=== PATIENT | female | born 1945 | race African-American/Black ===

== ENCOUNTER → 2016-12-06 | Day surgery (SDC) | payer MEDICARE, OTHER | LOC: RAD 11:44 | PROVIDERS: ATTEND Otolaryngology | PROC: 0G9G3ZX Drainage of Left Thyroid Gland Lobe, Percutaneous Approach, Diagnostic (ICD-10-PCS; principal; 2016-12-06) | DX: R22.1 Localized swelling, mass and lump, neck (principal); E04.1 Nontoxic single thyroid nodule; E89.0 Postprocedural hypothyroidism; Z85.850 Personal history of malignant neoplasm of thyroid; I10 Essential (primary) hypertension; M06.9 Rheumatoid arthritis, unspecified; E11.9 Type 2 diabetes mellitus without complications; E07.9 Disorder of thyroid, unspecified; Z87.891 Personal history of nicotine dependence | CPT/HCPCS: 60100; 76942; 88173 ==

== ENCOUNTER 2017-05-05 16:10 | Emergency (ER) | payer MEDICARE, OTHER ==
--- NOTE | 2017-05-05 16:24 | ER Document Report ---
ED Hip Pain/Injury - General Stated Complaint: LEFT HIP PAIN Time Seen by Provider: 05/05/17 16:16 Mode of Arrival: Stretcher Information source: Emergency Med Personnel Cannot obtain history due to: Dementia TRAVEL OUTSIDE OF THE [place] IN LAST 30 DAYS: No - HPI Patient complains to provider of: Hip Occurred: Just prior to arrival Where: Home Notes: 71-year-old female fell at home. She reports she tripped over her foot and now has left hip pain. She denies other injury. She does have apparently some dementia so history is limited her EMS and report. Blood sugar was noted to be 358. She denies any other medical problems but is on a few medications but none appear to be anticoagulants. Denies chest pain abdominal pain. - Related Data Allergies/Adverse Reactions: Sulfa (Sulfonamide Antibiotics) Allergy (Severe, Verified 05/05/17 22:06) Swelling of Throat Past Medical History - Social History Smoking Status: Unknown if Ever Smoked Family History: Reviewed & Not Pertinent - Past Medical History Cardiac Medical History: Reports: Hx Hypertension Neurological Medical History: Denies: Hx Cerebrovascular Accident, Hx Seizures Endocrine Medical History: Reports: Hx Diabetes Mellitus Type 2 Musculoskeltal Medical History: Reports Hx Arthritis Past Surgical History: Reports: Hx Hysterectomy, Hx Mastectomy. Denies: Hx Open Heart Surgery, Hx Pacemaker - Immunizations Immunizations up to date: Yes Hx Diphtheria, Pertussis, Tetanus Vaccination: No Hx Pneumococcal Vaccination: 08/16/10 Physical Exam - Vital signs Vitals: Temp Pulse Resp BP Pulse Ox 98.5 F 81 18 178/105 H 100 05/05/17 16:31 05/05/17 16:31 05/05/17 16:31 05/05/17 16:31 05/05/17 16:31 Interpretation: Hypertensive - Notes Notes: GENERAL: VS as per nursing doc. Thin female appearing comfortable in no acute distress but obviously has pain with movement. HEAD: Atraumatic, normocephalic. EYES: Pupils equal round and reactive to light, extraocular movements intact, sclera anicteric, no conjunctival injection or discharge. ENT: Nares patent, oropharynx clear without exudates, moist mucous membranes. NECK: Normal range of motion, supple without lymphadenopathy. LUNGS: Breath sounds clear to auscultation bilaterally and equal but coarse to auscultation. No wheezes rales or rhonchi. HEART: Regular rate and rhythm without murmurs. ABDOMEN: Soft, non-tender BACK: No palpable tenderness. EXTREMITIES: Muscular atrophy noted. There is very minimal external rotation of the left hip but that is also very minimal shortening. There is an abrasion over the left prepatellar area. Left hip is tender. Pelvis is stable but elicits left hip pain. Neurovascularly intact distally. NEUROLOGICAL: Normal speech. Normal sensory and motor exams for limits of pain with the left lower extremity PSYCH: Somewhat flat affect. Oriented 1 only SKIN: Warm, dry, left prepatellar abrasion Course - Re-evaluation Re-evalutation: 05/05/17 19:33 Patient reevaluated. Apparently daughter was here but is gone at this moment. I have placed a call to the hospitalist regarding admission, though we have no orthopedics apparently temperature control inspector.. 05/05/17 20:41 I went to the room and the family was not there but there was a friend who is trying to contact the daughter to obtain more information including where they would like to be transferred. Patient appears comfortable. Blood pressure seems to remain in the 170s-180s unless she is moving. Blood sugar was elevated. It appears she may have not not much treatment of these and a while as pharmacy reports they have not had any medications picked up recently. 05/05/17 21:17 I discussed at length with the patient's daughter. She is actually from [place] was coming up here to basically take her mother back home with her, unfortunately this fall occurred. She requests transfer to [facility] after giving multiple options. Reason for level higher of care as we do not have an orthopedist available/on-call this entire weekend. I spoke with the transfer center and they are going to contact a physician to call me back. 05/05/17 21:[address] Velazquez from [facility] who graciously will take the patient in transfer for hip repair. I have instructed the family and staff both that she should be n.p.o. after midnight and as well have asked to ensure x-rays on disc are sent. I have also asked xray to push the x-rays to [facility]. 05/05/17 23:10 The patient was reevaluated in the last 30 minutes. No further changes. The household refrigerator mechanic at the accepting facility has requested blood pressure treatment as they have no medical physician apparently she reports to care of this if it is an issue there. We will place her on lisinopril 10 mg. It appears apparent she has not had her blood pressure treated in a lengthy period of time as evidenced by the fact that she has not had medications. - Vital Signs Vital signs: Temp Pulse Resp BP Pulse Ox 98.9 F 81 17 173/98 H 100 05/05/17 23:03 05/05/17 16:31 05/05/17 23:04 05/05/17 23:04 05/05/17 23:04 - Laboratory Result Diagrams: 05/05/17 17:02 05/05/17 19:00 Laboratory results interpreted by me: 05/05/17 05/05/17 05/05/17 17:02 18:38 19:00 Hgb 15.8 H RDW 14.5 H Plt Count 105 L Sodium 136.5 L Carbon Dioxide 20 L BUN 33 H Creatinine 1.75 H Est GFR ( Amer) 35 L Est GFR (Non-Af Amer) 29 L Glucose 339 H POC Glucose Calcium 10.5 H Total Bilirubin 1.9 H Direct Bilirubin 0.6 H Total Protein 8.5 H Urine Protein 30 H Urine Glucose (UA) >=500 H Urine Ketones TRACE H Urine Blood MODERATE H 05/05/17 20:36 Hgb RDW Plt Count Sodium Carbon Dioxide BUN Creatinine Est GFR ( Amer) Est GFR (Non-Af Amer) Glucose POC Glucose 323 H Calcium Total Bilirubin Direct Bilirubin Total Protein Urine Protein Urine Glucose (UA) Urine Ketones Urine Blood - Diagnostic Test Radiology reviewed: Image reviewed, Reports reviewed - Left Femoral neck fracture - Consults Dr. Shi #1 Time consulted: 19:35 - Call placed to Dr. Shi. Will attempt again as no answer though it is their shift change. Dr. Shi #2 Time consulted: 20:15 - Discussed with Dr. Shi and as no Ortho here all weekend, wants transfer to higher level of care. Fran Bella Time consulted: 20:24 - Discuss with Admin and rec transfer as no Ortho temperature control inspector this weekend. Discharge - Discharge Clinical Impression: Displaced fracture of neck of left femur Condition: Good Disposition: [facility]
[2017-05-05] MEDS ORDERED: FENTANYL CITRATE INJ/PF 100 MCG/2 ML AMPUL IV ONE (16:46)
[2017-05-05 17:19] LABS: ABSOLUTE BASOPHILS # (AUTO) 0.1 10^3/uL (0.0-0.2); ABSOLUTE LYMPHOCYTES (AUTO) 2.3 10^3/uL (0.5-4.7); ABSOLUTE MONOCYTES (AUTO) 0.3 10^3/uL (0.1-1.4); ABSOLUTE NEUT (AUTO) 7.2 10^3/uL (1.7-8.2); BASOPHILS % (AUTO) 0.6 % (0-2); EOSINOPHILS % (AUTO) 0.2 % (0-6); HEMATOCRIT 46.3 % (36.0-47.0); HEMOGLOBIN 15.8 g/dL (12.0-15.5); HGB HCT DIFFERENCE 1.1; LYMPHOCYTES % (AUTO) 23.2 % (13-45); MEAN CORPUSCULAR HEMOGLOBIN 31.2 pg (27.0-33.4); MEAN CORPUSCULAR HGB CONC 34.2 g/dL (32.0-36.0); MEAN CORPUSCULAR VOLUME 91 fl (80-97); MONOCYTES % (AUTO) 3.4 % (3-13); RED BLOOD COUNT 5.07 10^6/uL (3.72-5.28); RED CELL DISTRIBUTION WIDTH 14.5 % (11.5-14.0); SEGMENTED NEUTROPHILS % (AUTO) 72.6 % (42-78); WHITE BLOOD COUNT 9.8 10^3/uL (4.0-10.5)
[2017-05-05 17:30] LABS: PROTHROMBIN TIME 13.2 SEC (11.4-15.4)
--- NOTE | 2017-05-05 18:12 | RADIOLOGY REPORT (SQ) ---
EXAM DESCRIPTION: CHEST SINGLE VIEW COMPLETED DATE/TIME: 05/05/2017 5:46 pm REASON FOR STUDY: Trauma with pain COMPARISON: 05/15/2015 EXAM PARAMETERS: NUMBER OF VIEWS: One view. TECHNIQUE: Single frontal radiographic view of the chest acquired. RADIATION DOSE: NA LIMITATIONS: None. FINDINGS: LUNGS AND PLEURA: No opacities, masses or pneumothorax. No pleural effusion. MEDIASTINUM AND HILAR STRUCTURES: No masses. Contour normal. HEART AND VASCULAR STRUCTURES: Heart normal in size. Normal vasculature. BONES: No acute findings. HARDWARE: Stable. OTHER: No other significant finding. IMPRESSION: NO ACUTE RADIOGRAPHIC FINDING IN THE CHEST. NO SIGNIFICANT CHANGE FROM PRIOR STUDY. TECHNICAL DOCUMENTATION: JOB ID: [id number]
--- NOTE | 2017-05-05 18:13 | RADIOLOGY REPORT (SQ) ---
EXAM DESCRIPTION: HIP LEFT AP/LATERAL COMPLETED DATE/TIME: 05/05/2017 5:46 pm REASON FOR STUDY: Trauma with pain COMPARISON: 01/19/2016 NUMBER OF VIEWS: Two views. TECHNIQUE: AP pelvis and additional frog-leg view of the left hip. LIMITATIONS: None. FINDINGS: MINERALIZATION: Normal. LEFT HIP: Moderately displaced subcapital femoral neck fracture. RIGHT HIP: No fracture or dislocation. No worrisome bone lesions. PUBIS AND ISCHIUM: No fracture. PELVIS: No fracture. SACRUM: No fracture or dislocation. No worrisome bone lesions. LOWER LUMBAR SPINE: No fracture or dislocation. No worrisome bone lesions. No significant disc disea se. SOFT TISSUES: No findings. OTHER: No other significant finding. IMPRESSION: LEFT FEMORAL NECK FRACTURE ABOVE. TECHNICAL DOCUMENTATION: JOB ID: [id number] [employer]- All Rights Reserved
[2017-05-05 19:29] LABS: APPEARANCE,URINE CLEAR; BILIRUBIN,URINE NEGATIVE (NEGATIVE); GLUCOSE, URINE >=500 mg/dL (NEGATIVE); KETONES,URINE TRACE mg/dL (NEGATIVE); LEUKOCYTE ESTERASE,URINE NEGATIVE (NEGATIVE); NITRITE,URINE NEGATIVE (NEGATIVE); PROTEIN,URINE 30 mg/dL (NEGATIVE); URINE SPECIFIC GRAVITY 1.017; UROBILINOGEN,URINE NEGATIVE mg/dL (<2.0)
[2017-05-05 20:04] LABS: ALANINE AMINOTRANSFERASE 24 U/L (9-52); ALBUMIN 4.9 g/dL (3.5-5.0); ALKALINE PHOSPHATASE 103 U/L (38-126); ANION GAP 19 (5-19); ASPARTATE AMINO TRANSFERASE 28 U/L (14-36); BILIRUBIN,DIRECT 0.6 mg/dL (0.0-0.4); BILIRUBIN,TOTAL 1.9 mg/dL (0.2-1.3); BLOOD UREA NITROGEN 33 mg/dL (7-20); CALCIUM 10.5 mg/dL (8.4-10.2); CARBON DIOXIDE 20 mmol/L (22-30); CHLORIDE 98 mmol/L (98-107); CREATININE RESULT 1.75 mg/dL (0.52-1.25); GLUCOSE 339 mg/dL (75-110); POTASSIUM 4.5 mmol/L (3.6-5.0); SODIUM 136.5 mmol/L (137-145); TOTAL PROTEIN 8.5 g/dL (6.3-8.2)
[2017-05-05 23:06] VITALS: BP 173/98
[2017-05-05] MEDS ORDERED: LISINOPRIL 10 MG TABLET PO ONE (23:09)
--- NOTE | 2017-05-07 13:05 | EKG REPORT ---
SEVERITY:- ABNORMAL ECG - SINUS RHYTHM BORDERLINE LEFT AXIS DEVIATION PROBABLE ANTEROSEPTAL INFARCT, AGE INDETERM : Confirmed by: Emily Maldonado MD 07-May-2017 13:04:51
== END 2017-05-05 23:20 | disposition short-term general hospital (02) ==
LOC: ER 16:10
DX: S72.002A Fracture of unspecified part of neck of left femur, initial encounter for closed fracture (principal); S80.812A Abrasion, left lower leg, initial encounter; W19.XXXA Unspecified fall, initial encounter; Y92.009 Unspecified place in unspecified non-institutional (private) residence as the place of occurrence of the external cause; E11.9 Type 2 diabetes mellitus without complications; F03.90 Unspecified dementia, unspecified severity, without behavioral disturbance, psychotic disturbance, mood disturbance, and anxiety; I10 Essential (primary) hypertension; Z88.2 Allergy status to sulfonamides; Z90.710 Acquired absence of both cervix and uterus
CPT/HCPCS: 93005; 99285; 51702; 96374; 86900; 86901; 36415; 86850; 82962; 85025; 85610; 80053; 81001; 71010; 73502; 93010; J3010; A9270

== ENCOUNTER 2017-05-16 00:49 | Inpatient (IN) | payer MEDICARE, OTHER ==
[2017-05-16] MEDS ORDERED: ACETAMINOPHEN 325 MG TABLET PO ONE (01:10)
--- NOTE | 2017-05-16 01:21 | ER Document Report ---
ED General - General Chief Complaint: Hip Injury Stated Complaint: FALL/HIP PAIN Time Seen by Provider: 05/16/17 01:07 Notes: Patient is a 71-year-old female presents with complaint of a possible right femur fracture. She stays at [facility]. Just last week she was transferred to [facility] due to a left hip fracture. I am awaiting records from [facility] to see exactly what they did for the patient at that time. She was then discharged to [facility]. She apparently was walking this morning and fell and they obtain a x-ray which now shows a right femur fracture. Patient has dementia and is unable to tell me much more in regards to her history. She does admit to falling but cannot remember when. She only complains of some pain in her left hip. She denies headache. She denies neck or back pain. TRAVEL OUTSIDE OF THE [place] IN LAST 30 DAYS: No - Related Data Allergies/Adverse Reactions: Sulfa (Sulfonamide Antibiotics) Allergy (Severe, Verified 05/05/17 22:06) Swelling of Throat Past Medical History - Social History Smoking Status: Unknown if Ever Smoked Frequency of alcohol use: None Drug Abuse: None Family History: Reviewed & Not Pertinent - Past Medical History Cardiac Medical History: Reports: Hx Hypertension Neurological Medical History: Denies: Hx Cerebrovascular Accident, Hx Seizures Endocrine Medical History: Reports: Hx Diabetes Mellitus Type 2 Renal/ Medical History: Reports: Hx End Stage Renal Disease - CKD Musculoskeltal Medical History: Reports Hx Arthritis Past Surgical History: Reports: Hx Hysterectomy, Hx Mastectomy. Denies: Hx Open Heart Surgery, Hx Pacemaker - Immunizations Immunizations up to date: Yes Hx Diphtheria, Pertussis, Tetanus Vaccination: No Hx Pneumococcal Vaccination: 08/16/10 Review of Systems - Review of Systems Notes: My Normal Review Basic REVIEW OF SYSTEMS: CONSTITUTIONAL : Denies fever, chills, or sweats. Denies recent illness. MUSCULOSKELETAL: Left hip pain. Possible right femur fracture per report from retirement. SKIN: Denies rash or skin lesions. NEUROLOGICAL: Denies altered mental status or loss of consciousness. Denies headache. Denies weakness or paralysis or loss of use of either side. Denies problems with gait or speech. Denies sensory or motor loss. ALL OTHER SYSTEMS REVIEWED AND NEGATIVE. Physical Exam - Notes Notes: General Appearance: Well nourished, alert, cooperative, no acute distress, no obvious discomfort. Vitals: reviewed, See vital signs table. Head: no swelling or tenderness to the head Eyes: PERRL, EOMI, Conjuctiva clear Mouth: No decreasd moisturehroat: No tonsillar inflammation, No airway obstruction, No lymphadenopathy Neck: Supple, no neck tenderness, Lungs: No wheezing, No rales, No rhonci, No accessory muscle use, good air exchange bilaterally. Heart: Normal rate, Regular rythm, No murmur, no rub Abdomen: Normal BS, soft, No rigidity, No abdominal tenderness, No guarding, no rebound, no abdominal masses, no organomegaly Extremities: strength 5/5 in all extremities, good pulses in all extremities, pain to palpation over left hip. No pain to palpation of her right leg. No pain with flexion or extension of the right hip. No pain to palpation of the upper extremities. No pain with range of motion of upper extremities. Skin: warm, dry, appropriate color, no rash Neuro: speech clear, oriented x 2, normal affect, responds appropriately to most questions. Course - Re-evaluation Re-evalutation: 05/16/17 05:04 Patient unfortunately does have a right subcapital hip fracture. I did speak with the family and they are agreeable to admission with Ortho consult. Place do want to speak with the orthopedist prior to any surgery being done. If the fracture is stable enough that they may want to eventually arrange for transfer to hospital back to the daughter's home in [place] for potential surgery. He said if the surgery does need to be done here then they will talk to the orthopedist about doing it here and then potential transfer to [place] afterwards for rehab. They are agreement with going had admitting here and stabilizing the patient and having orthopedics review the films and speaking with them. 05/16/17 05:05 05/16/17 05:24 I did call and speak with Dr. Jasso. I went over the patient's labs including the slight hyperkalemia. Patient has no EKG changes in regards to hyperkalemia. Think this is probably partial hemolysis and partial renal insufficiency. He does agree to admit the patient with orthopedic consultation. I did call and speak with Dr. Carranza, orthopedist on-call, just to give him a heads up about the situation and the patient's concerns about eventually wanting to take her back to [place]. He is understanding of this and says he would see the patient in consultation and speak with the family. - Laboratory Result Diagrams: 05/16/17 01:10 05/16/17 01:10 Laboratory results interpreted by me: 05/16/17 01:10 Sodium 132.5 L Potassium 5.8 H Chloride 96 L BUN 35 H Creatinine 2.05 H Est GFR ( Amer) 29 L Est GFR (Non-Af Amer) 24 L Glucose 127 H Direct Bilirubin 0.6 H AST 39 H Total Protein 5.7 L Albumin 2.8 L - EKG Interpretation by Me Additional EKG results interpreted by me: 05/16/17 04:57 EKG is reviewed and interpreted by me. EKG shows normal sinus rhythm with rate of [address] segment elevation or depression in comparison to her old EKG from May 05, 2017. SC interval, QRS duration, QTc intervals are within normal range. Discharge - Discharge Clinical Impression: Hyperkalemia, Renal insufficiency Hip fracture Qualifiers: Encounter type: initial encounter Fracture type: closed Laterality: right Qualified Code(s): S72.001A - Fracture of unspecified part of neck of right femur, initial encounter for closed fracture Condition: Stable Disposition: ADMITTED INPATIENT Admitting Provider: Romero
--- NOTE | 2017-05-16 02:26 | RADIOLOGY REPORT (SQ) ---
EXAM DESCRIPTION: HIP LEFT AP/LATERAL; FEMUR RIGHT COMPLETED DATE/TIME: 05/16/2017 1:51 am REASON FOR STUDY: trauma COMPARISON: 05/05/2017. NUMBER OF VIEWS: 6 views. TECHNIQUE: AP pelvis and additional frog-leg view of the left hip. Four views of the right femur. LIMITATIONS: No frog-leg view of the right hip. FINDINGS: MINERALIZATION: Normal. LEFT HIP: Left total hip arthroplasty. RIGHT HIP: Subtle impaction deformity or positional artifact of the right femoral neck. No evidence of healing. No frog-leg view of the right hip. PUBIS AND ISCHIUM: No fracture. PELVIS: No fracture. SACRUM: No fracture or dislocation. No worrisome bone lesions. LOWER LUMBAR SPINE: No fracture or dislocation. No worrisome bone lesions. No significant disc disea se. SOFT TISSUES: No findings. OTHER: No other significant finding. IMPRESSION: Possible mildly impacted right femoral neck fracture/deformity. Consider obtaining dedi cated radiographs of the right hip and/or CT/MR correlation TECHNICAL DOCUMENTATION: JOB ID: [id number] [employer]- All Rights Reserved
--- NOTE | 2017-05-16 04:19 | RADIOLOGY REPORT (SQ) ---
EXAM DESCRIPTION: CT RT LOWER EXTREMITY WITHOUT COMPLETED DATE/TIME: 05/16/2017 3:49 am REASON FOR STUDY: eval for right hip/femur fracture. pt fell. COMPARISON: CR, right femur and left hip, 05/16/2017. CR, left hip, 05/05/2017. TECHNIQUE: CT scan of the right hip and femur performed without intravenous or oral contrast. Image s reviewed with soft tissue and bone windows. Reconstructed coronal and sagittal MPR images reviewed . All images stored on PACS. All CT scanners at this facility use dose modulation, iterative reconstruction, and/or weight based d osing when appropriate to reduce radiation dose to as low as reasonably achievable (ALARA). [facility]: Dose Right [facility]: CareDose [facility]: Dose Right [facility]: Teradose 4D [facility]: PollitoIngles RADIATION DOSE: 442 LIMITATIONS: None. FINDINGS: PELVIC BONES: No acute fracture. No worrisome bone lesions. VISUALIZED SPINE: No acute findings. SYMPTOMATIC HIP/femur: Subtle subcapital fracture of the right proximal femur with 2 mm cortical disp lacement and slight valgus configuration, image 80 of series 502, Garden type 1. Prominent fovea cap itis variant. Mild osteoarthritis. PELVIC SOFT TISSUES: No significant findings. EXTRAPELVIC SOFT TISSUES: Atherosclerosis. OTHER: [id number] disc desiccation spondylosis. Right gluteal subcutaneous calcified granuloma . 2 cm right inguinal fat only herniation. Moderate diffuse bony demineralization. IMPRESSION: Subcapital fracture of the right proximal femur. TECHNICAL DOCUMENTATION: JOB ID: [id number] Quality ID # [id number]: Final reports with documentation of one or more dose reduction techniques (e.g., Au tomated exposure control, adjustment of the mA and/or kV according to patient size, use of iterative reconstruction technique) 2010 [employer]- All Rights Reserved
[2017-05-16 04:57] LABS: PROTHROMBIN TIME 13.1 SEC (11.4-15.4)
[2017-05-16 04:58] LABS: PARTIAL THROMBOPLASTIN TIME 33.4 SEC (23.5-35.8)
[2017-05-16 05:15] LABS: ALANINE AMINOTRANSFERASE 39 U/L (9-52); ALBUMIN 2.8 g/dL (3.5-5.0); ALKALINE PHOSPHATASE 80 U/L (38-126); ANION GAP 9 (5-19); ASPARTATE AMINO TRANSFERASE 39 U/L (14-36); BILIRUBIN,DIRECT 0.6 mg/dL (0.0-0.4); BILIRUBIN,TOTAL 0.7 mg/dL (0.2-1.3); BLOOD UREA NITROGEN 35 mg/dL (7-20); CALCIUM 8.7 mg/dL (8.4-10.2); CARBON DIOXIDE 28 mmol/L (22-30); CHLORIDE 96 mmol/L (98-107); CREATININE RESULT 2.05 mg/dL (0.52-1.25); GLUCOSE 127 mg/dL (75-110); POTASSIUM 5.8 mmol/L (3.6-5.0); SODIUM 132.5 mmol/L (137-145); TOTAL PROTEIN 5.7 g/dL (6.3-8.2)
[2017-05-16] MEDS ORDERED: NORMAL SALINE 1000 ML 1,000 ML IV ONE (05:18)
[2017-05-16 05:19] LABS: ABSOLUTE EOSINOPHILS # (AUTO) 0.1 10^3/uL (0.0-0.6); ABSOLUTE LYMPHOCYTES (AUTO) 4.1 10^3/uL (0.5-4.7); ABSOLUTE MONOCYTES (AUTO) 0.5 10^3/uL (0.1-1.4); ABSOLUTE NEUT (AUTO) 4.1 10^3/uL (1.7-8.2); BASOPHILS % (AUTO) 0.4 % (0-2); EOSINOPHILS % (AUTO) 1.3 % (0-6); HEMATOCRIT 31.9 % (36.0-47.0); HEMOGLOBIN 10.9 g/dL (12.0-15.5); HGB HCT DIFFERENCE 0.8; MEAN CORPUSCULAR HEMOGLOBIN 31.3 pg (27.0-33.4); MEAN CORPUSCULAR HGB CONC 34.2 g/dL (32.0-36.0); MEAN CORPUSCULAR VOLUME 92 fl (80-97); MONOCYTES % (AUTO) 6.1 % (3-13); RED BLOOD COUNT 3.48 10^6/uL (3.72-5.28); RED CELL DISTRIBUTION WIDTH 14.6 % (11.5-14.0); SEGMENTED NEUTROPHILS % (AUTO) 46.2 % (42-78); WHITE BLOOD COUNT 8.9 10^3/uL (4.0-10.5)
--- NOTE | 2017-05-16 05:21 | RADIOLOGY REPORT (SQ) ---
EXAM DESCRIPTION: CHEST SINGLE VIEW COMPLETED DATE/TIME: 05/16/2017 4:53 am REASON FOR STUDY: preop COMPARISON: 05/05/2017. 03/31/2011. EXAM PARAMETERS: NUMBER OF VIEWS: One view. TECHNIQUE: Single frontal radiographic view of the chest acquired. RADIATION DOSE: NA LIMITATIONS: None. FINDINGS: LUNGS AND PLEURA: Moderate lung volumes. Mild interstitial markings, stable. MEDIASTINUM AND HILAR STRUCTURES: No masses. Contour normal. HEART AND VASCULAR STRUCTURES: Heart normal in size. Normal vasculature. BONES: No acute findings. Moderate disc desiccation. HARDWARE: Right nuchal surgical clips. OTHER: No other significant finding. IMPRESSION: No acute cardiopulmonary findings. TECHNICAL DOCUMENTATION: JOB ID: [id number]
--- NOTE | 2017-05-16 08:03 | EKG REPORT ---
SEVERITY:- BORDERLINE ECG - SINUS RHYTHM LOW VOLTAGE IN FRONTAL LEADS BORDERLINE T ABNORMALITIES, ANT-LAT LEADS ABNORMAL Q SUGGESTS ANTEROSEPTAL INFARCT : Confirmed by: Bryon Shaver MD 16-May-2017 08:02:36
[2017-05-16] MEDS ORDERED: (PENDING PHARMACY ID) (Acetaminophen [Tylenol Extra Strength 500 Mg Tablet] 1,000 MG) PO PRN (11:45)
[2017-05-16] MEDS ORDERED: (PENDING PHARMACY ID) (Zolpidem Tartrate [Ambien] 10 MG) PO PRN (11:45)
[2017-05-16] MEDS ORDERED: TRAMADOL HCL 50 MG TABLET PO PRN (11:45)
[2017-05-16] MEDS ORDERED: (PENDING PHARMACY ID) (Insulin Aspart [Novolog Flexpen] 6 UNIT) SUBCUT SCH (12:15)
[2017-05-16] MEDS ORDERED: ZOLPIDEM TARTRATE 5 MG TABLET PO PRN (12:15)
[2017-05-16] MEDS ORDERED: DEXTROSE 50%-WATER SYRINGE 25 GM/50 ML DOSE IV PRN (12:20)
[2017-05-16] MEDS ORDERED: DEXTROSE 50%-WATER SYRINGE 12.5 GM/25 ML DOSE IV PRN (12:20)
[2017-05-16] MEDS ORDERED: DEXTROSE 40% GEL 15 GM TUBE X 2 PO PRN (12:20)
[2017-05-16] MEDS ORDERED: GLUCAGON,HUMAN RECOMB 1 MG INJ IM PRN (12:20)
[2017-05-16] MEDS ORDERED: DEXTROSE 40% GEL 15 GM TUBE PO PRN (12:20)
--- NOTE | 2017-05-16 12:34 | PDOC CONSULTATION ---
History of Present Illness Admission Date/PCP: 05/16/17 10:39 CHEIKH MART MD Patient complains of: Right hip pain History of Present Illness: MARINA CONNRO is a 71 year old female presented with complaint of a possible right femur fracture. She stays at [facility]. Just last week she was transferred to [facility] due to a left hip fracture. She was then discharged to [facility]. She apparently was walking this morning and fell and they obtain a x-ray which now shows a right femur fracture. According to nursing staff she was apparently ambulating on the right hip but the pain continued to increase. Patient has dementia and is a poor historian. Patient states she did fall but unable to provide details. She only complains of some pain in her left hip. Past Medical History Cardiac Medical History: Reports: Hypertension Neurological Medical History: Denies: Seizures Endocrine Medical History: Reports: Diabetes Mellitus Type 2 Renal/ Medical History: Reports: End Stage Renal Disease - CKD Musculoskeltal Medical History: Reports: Arthritis Past Surgical History Past Surgical History: Reports: Hysterectomy, Mastectomy Denies: Amputation, Pacemaker Social History Smoking Status: Unknown if Ever Smoked Frequency of Alcohol Use: None Hx Recreational Drug Use: No Drugs: None Hx Prescription Drug Abuse: No - Advance Directive Resuscitation Status: Full Code Family History Family History: Reviewed & Not Pertinent Parental Family History Reviewed: No Children Family History Reviewed: No Sibling(s) Family History Reviewed.: No Medication/Allergy Home Medications: Acetaminophen [Tylenol Extra Strength 500 mg Tablet] 1,000 mg PO Q6HP PRN Aspirin [Ecotrin 81 mg EC Tablet] 81 mg PO BID 05/16/17 Atorvastatin Calcium [Lipitor 80 mg Tablet] 80 mg PO QHS 05/16/17 Gabapentin [Neurontin 300 mg Capsule] 300 mg PO Q8 05/16/17 Hydrochlorothiazide 25 mg PO DAILY 05/16/17 Insulin Aspart [Novolog Flexpen] 0 unit SUBCUT .SLD SCALE 05/16/17 Insulin Detemir [Levemir Flextouch] 40 unit SQ QPM 05/16/17 Insulin Detemir [Levemir Flextouch] 45 unit SQ QAM 05/16/17 Levothyroxine Sodium [Synthroid] 50 mcg PO DAILY 05/16/17 Lisinopril [Prinivil] 20 mg PO DAILY 05/16/17 Losartan Potassium [Cozaar 100 mg Tablet] 100 mg PO DAILY 05/16/17 Metoclopramide HCl [Reglan 10 mg Tablet] 10 mg PO QID 05/16/17 Naproxen 1,000 mg PO BIDACBS 05/16/17 Pioglitazone HCl [Actos] 45 mg PO DAILY 05/16/17 Quinine Sulfate [Qualaquin 324 Mg Capsule] 324 mg PO QHS 05/16/17 Sennosides/Docusate Sodium [Senna-S Tablet] 1 each PO BID 05/16/17 Tolterodine Tartrate [Detrol La] 4 mg PO DAILY 05/16/17 Tramadol HCl [Ultram 50 mg Tablet] 50 mg PO Q6HP PRN 05/16/17 Zolpidem Tartrate [Ambien] 10 mg PO HSP PRN 05/16/17 Allergies/Adverse Reactions: Sulfa (Sulfonamide Antibiotics) Allergy (Severe, Verified 05/05/17 22:06) Swelling of Throat Review of Systems ROS unobtainable: Due to mental status All systems: as per H Physical Exam Vital Signs: Temp Pulse Resp BP Pulse Ox 97.7 F 77 18 170/83 H 97 05/16/17 10:39 05/16/17 10:39 05/16/17 10:39 05/16/17 10:39 05/16/17 10:39 General appearance: PRESENT: no acute distress, cooperative Head exam: PRESENT: atraumatic, normocephalic Eye exam: PRESENT: conjunctiva pink, EOMI. ABSENT: scleral icterus Ear exam: PRESENT: normal external ear exam Mouth exam: PRESENT: moist, tongue midline Neck exam: PRESENT: full ROM. ABSENT: carotid bruit, JVD, lymphadenopathy, thyromegaly Respiratory exam: PRESENT: unlabored Cardiovascular exam: PRESENT: RRR. ABSENT: diastolic murmur, rubs, systolic murmur Pulses: PRESENT: normal dorsalis pedis pul, +2 pedal pulses bilateral Vascular exam: PRESENT: normal capillary refill GI/Abdominal exam: PRESENT: normal bowel sounds, soft. ABSENT: distended, guarding, mass, organolmegaly, rebound, tenderness Rectal exam: PRESENT: deferred Musculoskeletal exam: PRESENT: other - Right hip: Pain with range of motion. Patient unable to straight leg raise. Intact plantar flexion/dorsiflexion. No calf tenderness. Left hip: No evidence of limb length inequality. Surgical incision well approximated healing. No erythema or drainage. No calf tenderness. Neurological exam: PRESENT: alert, awake, oriented to person, oriented to place , oriented to time, oriented to situation, CN II-XII grossly intact. ABSENT: motor sensory deficit Psychiatric exam: PRESENT: appropriate affect, normal mood. ABSENT: homicidal ideation, suicidal ideation Skin exam: PRESENT: dry, intact, warm. ABSENT: cyanosis, rash Results Impressions: Hip X-Ray 05/16/17 01:09 IMPRESSION: Possible mildly impacted right femoral neck fracture/deformity. Consider obtaining dedicated radiographs of the right hip and/or CT/MR correlation Femur X-Ray 05/16/17 01:18 IMPRESSION: Possible mildly impacted right femoral neck fracture/deformity. Consider obtaining dedicated radiographs of the right hip and/or CT/MR correlation Lower Extremity CT 05/16/17 02:52 IMPRESSION: Subcapital fracture of the right proximal femur. Chest X-Ray 05/16/17 04:38 IMPRESSION: No acute cardiopulmonary findings. Status: Image reviewed by me - I have reviewed patient's CT scan and radiographs. Demonstrate valgus impacted subcapital femoral neck fracture. Concomitant degenerative changes noted. Assessment & Plan - Diagnosis (1) Nondisplaced fracture of neck of right femur Qualifiers: Encounter type: initial encounter Fracture type: closed Qualified Code(s): S72.001A - Fracture of unspecified part of neck of right femur, initial encounter for closed fracture Is this a current diagnosis for this admission?: YesPlan: I have reviewed patient's radiographs and CT scan which demonstrate a nondisplaced impacted subcapital femoral neck fracture which is consistent with patient clinical examination findings. I have discussed treatment options with the family including operative versus nonoperative intervention desire is to proceed with operative treatment but are considering Transfer back home to [facility] with the family is from and can better care for the patient. We discussed the possibility of this I am somewhat concerned about the distance traveled and she will certainly be at increased risk for various medical complications including DVT and pneumonia. I have discussed likely a better scenario would be patient complete operative intervention when she is somewhat more ambulatory and has recovered in the postoperative period she can then be transferred for further rehabilitation in [facility]. Patient's family are considering these options and will ultimately make a final decision within the next 24 hours. We did discuss the details of the surgical treatment including risks such as anesthetic complications, excessive bleeding, infection, injury to surrounding nerves, vessels and tendons, bruising, healing difficulties, scar formation, posttraumatic arthritis and any unforseen complication.
[2017-05-16] MEDS: METOCLOPRAMIDE HCL 10 MG TABLET PO SCH ×3 (14:31→21:52)
[2017-05-16] MEDS: GABAPENTIN 300 MG CAPSULE PO SCH ×2 (14:32→21:51)
[2017-05-16] MEDS ORDERED: NAPROXEN PO SCH (16:00)
[2017-05-16 17:30] LABS: ABSOLUTE BASOPHILS # (AUTO) 0.1 10^3/uL (0.0-0.2); ABSOLUTE EOSINOPHILS # (AUTO) 0.1 10^3/uL (0.0-0.6); ABSOLUTE LYMPHOCYTES (AUTO) 2.9 10^3/uL (0.5-4.7); ABSOLUTE MONOCYTES (AUTO) 0.5 10^3/uL (0.1-1.4); ABSOLUTE NEUT (AUTO) 5.2 10^3/uL (1.7-8.2); BASOPHILS % (AUTO) 0.9 % (0-2); EOSINOPHILS % (AUTO) 1.4 % (0-6); HEMATOCRIT 31.7 % (36.0-47.0); HEMOGLOBIN 10.9 g/dL (12.0-15.5); LYMPHOCYTES % (AUTO) 32.7 % (13-45); MEAN CORPUSCULAR HEMOGLOBIN 31.1 pg (27.0-33.4); MEAN CORPUSCULAR HGB CONC 34.3 g/dL (32.0-36.0); MEAN CORPUSCULAR VOLUME 91 fl (80-97); MONOCYTES % (AUTO) 5.9 % (3-13); RED BLOOD COUNT 3.49 10^6/uL (3.72-5.28); RED CELL DISTRIBUTION WIDTH 14.5 % (11.5-14.0); SEGMENTED NEUTROPHILS % (AUTO) 59.1 % (42-78); WHITE BLOOD COUNT 8.8 10^3/uL (4.0-10.5)
[2017-05-16] MEDS: INSULIN DETEMIR 100 UNIT/ML 3 ML PEN SUBCUT SCH (17:48)
[2017-05-16 17:49] LABS: ALANINE AMINOTRANSFERASE 33 U/L (9-52); ALBUMIN 3.1 g/dL (3.5-5.0); ALKALINE PHOSPHATASE 96 U/L (38-126); ANION GAP 9 (5-19); ASPARTATE AMINO TRANSFERASE 35 U/L (14-36); BILIRUBIN,DIRECT 0.5 mg/dL (0.0-0.4); BILIRUBIN,TOTAL 0.7 mg/dL (0.2-1.3); BLOOD UREA NITROGEN 28 mg/dL (7-20); CALCIUM 8.7 mg/dL (8.4-10.2); CARBON DIOXIDE 25 mmol/L (22-30); CHLORIDE 99 mmol/L (98-107); CREATININE RESULT 1.82 mg/dL (0.52-1.25); GLUCOSE 260 mg/dL (75-110); POTASSIUM 5.3 mmol/L (3.6-5.0); SODIUM 133.4 mmol/L (137-145); TOTAL PROTEIN 5.8 g/dL (6.3-8.2)
[2017-05-16] MEDS: SENNOSIDES/DOCUSATE 8.6-50 MG 1 EACH TABLET PO SCH (17:49)
[2017-05-16] MEDS: NAPROXEN 250 MG TABLET PO SCH (17:50)
[2017-05-16] MEDS: ASPIRIN 81 MG TABLET, ENT COATED PO SCH (18:01)
[2017-05-16 18:58] LABS: APPEARANCE,URINE CLOUDY; BILIRUBIN,URINE NEGATIVE (NEGATIVE); GLUCOSE, URINE >=500 mg/dL (NEGATIVE); KETONES,URINE NEGATIVE (NEGATIVE); LEUKOCYTE ESTERASE,URINE LARGE (NEGATIVE); NITRITE,URINE NEGATIVE (NEGATIVE); PROTEIN,URINE NEGATIVE (NEGATIVE); URINE SPECIFIC GRAVITY 1.005; UROBILINOGEN,URINE NEGATIVE mg/dL (<2.0)
[2017-05-16] MEDS ORDERED: NORMAL SALINE 1000 ML 1,000 ML IV PRN (20:14)
--- NOTE | 2017-05-16 21:37 | PDOC H&P ---
History of Present Illness Admission Date/PCP: 05/16/17 10:39 CHEIKH MART MD History of Present Illness: She fell and sustained fracture of the right proximal femur, she is presently in the jail at [place] because she is undergoing rehabilitation after she fell over a week ago and sustained fracture of the left hip area. At that time she was transferred to [place] where she underwent ORIF and she was transferred back to the jail at [place] for rehabilitation. She has underlining history of dementia and recently she has become more confused she also have diabetes mellitus that is poorly controlled she has not been compliant with her medication in the last couple of weeks. Patient's family was making plans to transfer her to [facility] where the daughter stays.There was no antecedent history of chest pain, no loss of consciousness Past Medical History Cardiac Medical History: Reports: Hypertension Pulmonary Medical History: Reports: Chronic Obstructive Pulmonary Disease (COPD) Endocrine Medical History: Reports: Diabetes Mellitus Type 2 Musculoskeltal Medical History: Reports: Arthritis Psychiatric Medical History: Reports: Dementia Past Surgical History Past Surgical History: Reports: Hysterectomy, Mastectomy Social History Smoking Status: Former Smoker Frequency of Alcohol Use: None Hx Recreational Drug Use: No Drugs: None Hx Prescription Drug Abuse: No - Advance Directive Resuscitation Status: Full Code Family History Family History: Reviewed & Not Pertinent Parental Family History Reviewed: Yes Children Family History Reviewed: Yes Sibling(s) Family History Reviewed.: Yes Medication/Allergy Home Medications: Acetaminophen [Tylenol Extra Strength 500 mg Tablet] 1,000 mg PO Q6HP PRN Aspirin [Ecotrin 81 mg EC Tablet] 81 mg PO BID 05/16/17 Atorvastatin Calcium [Lipitor 80 mg Tablet] 80 mg PO QHS 05/16/17 Gabapentin [Neurontin 300 mg Capsule] 300 mg PO Q8 05/16/17 Hydrochlorothiazide 25 mg PO DAILY 05/16/17 Insulin Aspart [Novolog Flexpen] 0 unit SUBCUT .SLD SCALE 05/16/17 Insulin Detemir [Levemir Flextouch] 40 unit SQ QPM 05/16/17 Insulin Detemir [Levemir Flextouch] 45 unit SQ QAM 05/16/17 Levothyroxine Sodium [Synthroid] 50 mcg PO DAILY 05/16/17 Lisinopril [Prinivil] 20 mg PO DAILY 05/16/17 Losartan Potassium [Cozaar 100 mg Tablet] 100 mg PO DAILY 05/16/17 Metoclopramide HCl [Reglan 10 mg Tablet] 10 mg PO QID 05/16/17 Naproxen 500 mg PO BIDACBS 05/16/17 Pioglitazone HCl [Actos] 45 mg PO DAILY 05/16/17 Quinine Sulfate [Qualaquin 324 Mg Capsule] 324 mg PO QHS 05/16/17 Sennosides/Docusate Sodium [Senna-S Tablet] 1 each PO BID 05/16/17 Tolterodine Tartrate [Detrol La] 4 mg PO DAILY 05/16/17 Tramadol HCl [Ultram 50 mg Tablet] 50 mg PO Q6HP PRN 05/16/17 Zolpidem Tartrate [Ambien] 10 mg PO HSP PRN 05/16/17 Allergies/Adverse Reactions: Sulfa (Sulfonamide Antibiotics) Allergy (Severe, Verified 05/05/17 22:06) Swelling of Throat Review of Systems Eyes: ABSENT: visual disturbances Ears: ABSENT: hearing changes Cardiovascular: ABSENT: chest pain, dyspnea on exertion, edema, orthropnea, palpitations Respiratory: ABSENT: cough, hemoptysis Gastrointestinal: ABSENT: abdominal pain, constipation, diarrhea, hematemesis, hematochezia, nausea, vomiting Genitourinary: ABSENT: dysuria, hematuria Musculoskeletal: PRESENT: back pain, joint swelling Integumentary: ABSENT: rash, wounds Neurological: ABSENT: abnormal gait, abnormal speech, confusion, dizziness, focal weakness, syncope Psychiatric: ABSENT: anxiety, depression, homidical ideation, suicidal ideation Endocrine: ABSENT: cold intolerance, heat intolerance, menstrual abnormalities, polydipsia, polyuria Hematologic/Lymphatic: ABSENT: easy bleeding, easy bruising, lymphadenopathy Physical Exam Vital Signs: Temp Pulse Resp BP Pulse Ox 98.6 F 89 14 143/66 H 100 05/16/17 15:21 05/16/17 15:21 05/16/17 15:21 05/16/17 15:21 05/16/17 15:21 Intake & Output 05/15/17 05/16/17 05/17/17 06:59 06:59 06:59 Intake Total 1432 Balance 1432 General appearance: PRESENT: no acute distress Head exam: PRESENT: atraumatic, normocephalic Eye exam: PRESENT: PERRLA Mouth exam: PRESENT: moist, tongue midline Neck exam: PRESENT: full ROM Respiratory exam: PRESENT: clear to auscultation casandra Cardiovascular exam: PRESENT: RRR, +S1, +S2 Pulses: PRESENT: normal dorsalis pedis pul, +2 pedal pulses bilateral Vascular exam: PRESENT: normal capillary refill GI/Abdominal exam: PRESENT: normal bowel sounds, soft Rectal exam: PRESENT: deferred Neurological exam: PRESENT: alert, CN II-XII grossly intact Psychiatric exam: PRESENT: appropriate affect, normal mood Skin exam: PRESENT: dry, intact, warm Results Laboratory Results: 05/16/17 17:15 05/16/17 17:15 05/16/17 05/16/17 05/16/17 17:15 17:15 18:30 WBC 8.8 RBC 3.49 L Hgb 10.9 L Hct 31.7 L MCV 91 MCH 31.1 MCHC 34.3 RDW 14.5 H Plt Count 331 Seg Neutrophils % 59.1 Lymphocytes % 32.7 Monocytes % 5.9 Eosinophils % 1.4 Basophils % 0.9 Absolute Neutrophils 5.2 Absolute Lymphocytes 2.9 Absolute Monocytes 0.5 Absolute Eosinophils 0.1 Absolute Basophils 0.1 Sodium 133.4 L Potassium 5.3 H Chloride 99 Carbon Dioxide 25 Anion Gap 9 BUN 28 H Creatinine 1.82 H Est GFR ( Amer) 33 L Est GFR (Non-Af Amer) 27 L Glucose 260 H Calcium 8.7 Total Bilirubin 0.7 AST 35 ALT 33 Alkaline Phosphatase 96 Total Protein 5.8 L Albumin 3.1 L Urine Color YELLOW Urine Appearance CLOUDY Urine pH 7.0 Ur Specific [place] 1.005 Urine Protein NEGATIVE Urine Glucose (UA) >=500 H Urine Ketones NEGATIVE Urine Blood SMALL H Urine Nitrite NEGATIVE Ur Leukocyte Esterase LARGE H Urine WBC (Auto) >182 Urine RBC (Auto) 7 Impressions: Hip X-Ray 05/16/17 01:09 IMPRESSION: Possible mildly impacted right femoral neck fracture/deformity. Consider obtaining dedicated radiographs of the right hip and/or CT/MR correlation Femur X-Ray 05/16/17 01:18 IMPRESSION: Possible mildly impacted right femoral neck fracture/deformity. Consider obtaining dedicated radiographs of the right hip and/or CT/MR correlation Lower Extremity CT 05/16/17 02:52 IMPRESSION: Subcapital fracture of the right proximal femur. Chest X-Ray 05/16/17 04:38 IMPRESSION: No acute cardiopulmonary findings. 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
[2017-05-16] MEDS: TOLTERODINE TARTRATE 1 MG TABLET PO SCH (21:51)
[2017-05-16] MEDS: INSULIN LISPRO 100 UNIT/ML 3 ML VIAL SUBCUT PRN (21:52)
[2017-05-16] MEDS: QUININE SULFATE 324 MG CAPSULE PO SCH (21:52)
[2017-05-16] MEDS: ATORVASTATIN CALCIUM 80 MG TABLET PO SCH (21:52)
[2017-05-17 05:10] LABS: ALANINE AMINOTRANSFERASE 26 U/L (9-52); ALBUMIN 2.7 g/dL (3.5-5.0); ALKALINE PHOSPHATASE 72 U/L (38-126); ANION GAP 6 (5-19); ASPARTATE AMINO TRANSFERASE 26 U/L (14-36); BILIRUBIN,DIRECT 0.3 mg/dL (0.0-0.4); BILIRUBIN,TOTAL 0.5 mg/dL (0.2-1.3); BLOOD UREA NITROGEN 28 mg/dL (7-20); CALCIUM 8.1 mg/dL (8.4-10.2); CARBON DIOXIDE 26 mmol/L (22-30); CHLORIDE 104 mmol/L (98-107); CREATININE RESULT 1.71 mg/dL (0.52-1.25); GLUCOSE 120 mg/dL (75-110); SODIUM 135.5 mmol/L (137-145); TOTAL PROTEIN 5.5 g/dL (6.3-8.2)
[2017-05-17] MEDS: GABAPENTIN 300 MG CAPSULE PO SCH ×3 (05:18→21:13)
[2017-05-17 05:21] LABS: POTASSIUM 4.3 mmol/L (3.6-5.0)
[2017-05-17] MEDS: INSULIN DETEMIR 100 UNIT/ML 3 ML PEN SUBCUT SCH ×2 (08:35→17:41)
[2017-05-17] MEDS: NAPROXEN 250 MG TABLET PO SCH ×2 (08:35→16:05)
[2017-05-17] MEDS ORDERED: (PENDING PHARMACY ID) (Tolterodine Tartrate [Detrol La] 4 MG) PO SCH (10:00)
[2017-05-17] MEDS ORDERED: (PENDING PHARMACY ID) (Pioglitazone Hcl [Actos] 45 MG) PO SCH (10:00)
[2017-05-17] MEDS ORDERED: (PENDING PHARMACY ID) (Lisinopril [Prinivil] 20 MG) PO SCH (10:00)
[2017-05-17] MEDS ORDERED: FENTANYL CITRATE INJ/PF 100 MCG/2 ML AMPUL ONE (10:19)
[2017-05-17] MEDS ORDERED: KETAMINE HCL INJ 500 MG/10 ML VIAL ONE (10:19)
[2017-05-17] MEDS ORDERED: ACETAMINOPHEN 0 ML IV ONE (10:20)
[2017-05-17] MEDS ORDERED: MIDAZOLAM 2 MG/2 ML INJ ONE (10:20)
[2017-05-17] MEDS ORDERED: PROPOFOL INJ 200 MG/20 ML VIAL IV ONE (10:20)
[2017-05-17] MEDS: PIOGLITAZONE HCL 15 MG TABLET PO SCH (10:21)
[2017-05-17] MEDS: LEVOTHYROXINE SODIUM 0.05 MG TABLET PO SCH (10:21)
[2017-05-17] MEDS: METOCLOPRAMIDE HCL 10 MG TABLET PO SCH ×4 (10:21→21:12)
[2017-05-17] MEDS: LOSARTAN POTASSIUM 50 MG TABLET PO SCH (10:21)
[2017-05-17] MEDS: HYDROCHLOROTHIAZIDE 25 MG TABLET PO SCH (10:21)
[2017-05-17] MEDS: ASPIRIN 81 MG TABLET, ENT COATED PO SCH ×2 (10:21→17:41)
[2017-05-17] MEDS: TOLTERODINE TARTRATE 1 MG TABLET PO SCH ×2 (10:21→21:12)
[2017-05-17] MEDS: LISINOPRIL 10 MG TABLET PO SCH (10:21)
[2017-05-17] MEDS: SENNOSIDES/DOCUSATE 8.6-50 MG 1 EACH TABLET PO SCH ×2 (10:21→17:40)
[2017-05-17] MEDS ORDERED: CEFAZOLIN INJ 1 GM VIAL ONE ×2 (11:03→11:05)
[2017-05-17] MEDS ORDERED: LIDOCAINE 1% INJ-PF (10 MG/ML) 30 ML SDV ONE (11:09)
[2017-05-17] MEDS ORDERED: BUPIVACAINE HCL 0.5%-EPI 1:200000 INJ/PF 30 ML VIAL ONE (11:09)
--- NOTE | 2017-05-17 11:27 | Operative Report ---
Operative Report DATE OF SURGERY: 05/17/17 PREOPERATIVE DIAGNOSIS: Right valgus impacted femoral neck fracture OPERATION: Cutaneous pinning right femoral neck fracture SURGEON: TRIP ZARAGOZA ANESTHESIA: LMAC ESTIMATED BLOOD LOSS: Minimal PROCEDURE: The patient supine on the fracture table the right lower extremities prepped and draped in sterile fashion. Under fluoroscopic guidance guidepins for the [place] 6.5 titanium screws were placed through the lateral cortex up into the femoral neck. A guide was then used to place the next 2 parallel pins. Subsequently 6 5 titanium screws were advanced over the pins at depths of 85, 85 , and 80 mm. The pins were removed. The position of the screws and the fracture are again assessed fluoroscopically felt to be adequate. The wound was irrigated and closed using up to Vicryl followed by ella. Sterile compressive dressing was applied and the patient's return to the PACU in satisfactory condition.
[2017-05-17] MEDS ORDERED: FENTANYL CITRATE INJ/PF 100 MCG/2 ML AMPUL IV PRN (11:28)
[2017-05-17] MEDS ORDERED: DEXTROSE 50%-WATER 25 GM/50 ML DISP.SYRIN IV ONE (11:49)
[2017-05-17] MEDS ORDERED: RINGERS SOLUTION,LACTATED 1,000 ML IV PRN (13:21)
[2017-05-17] MEDS ORDERED: LIDOCAINE 2% INJ-PF (20 MG/ML) 10 ML AMPUL ONE (14:23)
[2017-05-17] MEDS ORDERED: ONDANSETRON HCL INJ/PF 4 MG/2 ML SDV ONE (14:23)
--- NOTE | 2017-05-17 14:57 | RADIOLOGY REPORT (SQ) ---
EXAM DESCRIPTION: HIP IN OPERATING RM COMPLETED DATE/TIME: 05/17/2017 2:46 pm REASON FOR STUDY: CANNULATED SCREWS PLCMT RT HIP ASSISTED WITH FLUORO IN OR COMPARISON: None. FLUOROSCOPY TIME: 0.3 minute 2 images saved to PACS. TECHNIQUE: Intra-operative images acquired during surgical procedure to evaluate progress. NUMBER OF IMAGES: 2 LIMITATIONS: None. FINDINGS: 2 spot fluoroscopic image submitted for review from open reduction internal fixation of t he right hip. Image demonstrates 3 cannulated lag screws engaging the proximal right femur cross the neck. Screws appear to be in appropriate position. No other gross abnormality identified. Please see operative report full details regarding procedure. IMPRESSION: IMAGE(S) OBTAINED DURING PROCEDURE. COMMENT: Quality ID [id number]: Final reports for procedures using fluoroscopy that document radiation exp osure indices, or exposure time and number of fluorographic images (if radiation exposure indices are not available) Please consult full operative report of the attending physician for description of the procedure. TECHNICAL DOCUMENTATION: JOB ID: [id number] [employer]- All Rights Reserved
[2017-05-17] MEDS: CEFAZOLIN SODIUM 2 GM in DEXTROSE 5%-WATER 100 ML IV SCH (17:27)
--- NOTE | 2017-05-17 18:04 | PDOC PROGRESS REPORT ---
Subjective Progress Note for:: 05/17/17 Subjective:: Patient had ORIF of the right hip today, she had episode of hypoglycemia, the medication was adjusted. Patient's family wants to get her to [facility] on discharge. Physical Exam Vital Signs: Temp Pulse Resp BP Pulse Ox 98 F 70 18 136/70 H 100 05/17/17 16:50 05/17/17 16:50 05/17/17 16:50 05/17/17 16:50 05/17/17 16:50 Intake & Output 05/16/17 05/17/17 05/18/17 06:59 06:59 06:59 Intake Total 1532 400 Output Total 460 Balance 1532 -60 Weight 59.3 kg General appearance: PRESENT: no acute distress Eye exam: PRESENT: PERRLA Respiratory exam: PRESENT: clear to auscultation casandra Cardiovascular exam: PRESENT: +S1, +S2 GI/Abdominal exam: PRESENT: soft Neurological exam: PRESENT: alert Results Laboratory Results: 05/16/17 17:15 05/17/17 04:41 05/16/17 05/17/17 18:30 04:41 Sodium 135.5 L Potassium 4.3 D Chloride 104 Carbon Dioxide 26 Anion Gap 6 BUN 28 H Creatinine 1.71 H Est GFR ( Amer) 36 L Est GFR (Non-Af Amer) 29 L Glucose 120 H Calcium 8.1 L Total Bilirubin 0.5 AST 26 ALT 26 Alkaline Phosphatase 72 Total Protein 5.5 L Albumin 2.7 L Urine Color YELLOW Urine Appearance CLOUDY Urine pH 7.0 Ur Specific [place] 1.005 Urine Protein NEGATIVE Urine Glucose (UA) >=500 H Urine Ketones NEGATIVE Urine Blood SMALL H Urine Nitrite NEGATIVE Ur Leukocyte Esterase LARGE H Urine WBC (Auto) >182 Urine RBC (Auto) 7 Impressions: Femur X-Ray 05/16/17 01:18 IMPRESSION: Possible mildly impacted right femoral neck fracture/deformity. Consider obtaining dedicated radiographs of the right hip and/or CT/MR correlation Lower Extremity CT 05/16/17 02:52 IMPRESSION: Subcapital fracture of the right proximal femur. Chest X-Ray 05/16/17 04:38 IMPRESSION: No acute cardiopulmonary findings. Hip X-Ray 05/17/17 00:00 IMPRESSION: IMAGE(S) OBTAINED DURING PROCEDURE. Assessment & Plan - Diagnosis (1) Nondisplaced fracture of neck of right femur Qualifiers: Encounter type: initial encounter Fracture type: closed Qualified Code(s): S72.001A - Fracture of unspecified part of neck of right femur, initial encounter for closed fracture Is this a current diagnosis for this admission?: Yes (2) Uncontrolled diabetes mellitus Qualifiers: Diabetes mellitus type: type 2 Diabetes mellitus complication status: with hyperglycemia Diabetes mellitus honey producer insulin use: with residential use Qualified Code(s): E11.65 - Type 2 diabetes mellitus with hyperglycemia Is this a current diagnosis for this admission?: Yes (3) Acute kidney injury Is this a current diagnosis for this admission?: Yes (4) Hyponatremia Is this a current diagnosis for this admission?: Yes - Plan Summary Plan Summary: Insulin was adjusted continue treatment
[2017-05-17] MEDS: QUININE SULFATE 324 MG CAPSULE PO SCH (21:12)
[2017-05-17] MEDS: ATORVASTATIN CALCIUM 80 MG TABLET PO SCH (21:13)
[2017-05-18] MEDS: CEFAZOLIN SODIUM 2 GM in DEXTROSE 5%-WATER 100 ML IV SCH (02:46)
[2017-05-18 04:52] LABS: HEMATOCRIT 27.4 % (36.0-47.0); HEMOGLOBIN 9.4 g/dL (12.0-15.5); HGB HCT DIFFERENCE 0.8; MEAN CORPUSCULAR HEMOGLOBIN 30.9 pg (27.0-33.4); MEAN CORPUSCULAR HGB CONC 34.2 g/dL (32.0-36.0); MEAN CORPUSCULAR VOLUME 90 fl (80-97); RED BLOOD COUNT 3.04 10^6/uL (3.72-5.28); RED CELL DISTRIBUTION WIDTH 14.4 % (11.5-14.0)
[2017-05-18 05:14] LABS: ANION GAP 7 (5-19); BLOOD UREA NITROGEN 22 mg/dL (7-20); CALCIUM 8.1 mg/dL (8.4-10.2); CARBON DIOXIDE 24 mmol/L (22-30); CHLORIDE 106 mmol/L (98-107); CREATININE RESULT 1.33 mg/dL (0.52-1.25); GLUCOSE 131 mg/dL (75-110); SODIUM 137.2 mmol/L (137-145)
[2017-05-18] MEDS: GABAPENTIN 300 MG CAPSULE PO SCH ×3 (05:47→21:59)
[2017-05-18] MEDS: LOSARTAN POTASSIUM 50 MG TABLET PO SCH (09:32)
[2017-05-18] MEDS: ASPIRIN 81 MG TABLET, ENT COATED PO SCH ×2 (09:33→17:44)
[2017-05-18] MEDS: HYDROCHLOROTHIAZIDE 25 MG TABLET PO SCH (09:33)
[2017-05-18] MEDS: SENNOSIDES/DOCUSATE 8.6-50 MG 1 EACH TABLET PO SCH ×2 (09:33→17:44)
[2017-05-18] MEDS: LEVOTHYROXINE SODIUM 0.05 MG TABLET PO SCH (09:34)
[2017-05-18] MEDS: METOCLOPRAMIDE HCL 10 MG TABLET PO SCH ×4 (09:34→22:01)
[2017-05-18] MEDS: LISINOPRIL 10 MG TABLET PO SCH (09:34)
[2017-05-18] MEDS: TOLTERODINE TARTRATE 1 MG TABLET PO SCH ×2 (09:35→22:00)
[2017-05-18] MEDS: NAPROXEN 250 MG TABLET PO SCH (09:37)
--- NOTE | 2017-05-18 13:40 | PDOC PROGRESS REPORT ---
Subjective Progress Note for:: 05/18/17 Subjective:: No issues overnight. Pain well controlled Physical Exam Vital Signs: Temp Pulse Resp BP Pulse Ox 36.9 C 72 16 177/62 H 100 05/18/17 11:26 05/18/17 11:26 05/18/17 11:26 05/18/17 11:26 05/18/17 11:26 Intake & Output 05/17/17 05/18/17 05/19/17 06:59 06:59 06:59 Intake Total 1532 2897 Output Total 1860 Balance 1532 1037 Weight 59.3 kg General appearance: PRESENT: no acute distress Adult Front & Back Image: 2 - Outside dressing dry clean and intact with intact ella. No redness or erythema. Neurovascular intact distally. Results Laboratory Results: 05/18/17 04:37 05/18/17 04:37 05/18/17 05/18/17 04:37 04:37 WBC 9.0 RBC 3.04 L Hgb 9.4 L Hct 27.4 L MCV 90 MCH 30.9 MCHC 34.2 RDW 14.4 H Plt Count 337 Sodium 137.2 Potassium 5.0 Chloride 106 Carbon Dioxide 24 Anion Gap 7 BUN 22 H Creatinine 1.33 H Est GFR ( Amer) 47 L Est GFR (Non-Af Amer) 39 L Glucose 131 H Calcium 8.1 L 05/16/17 18:30 Catheterized Urine Urine Culture - Final Escherichia Coli Impressions: Femur X-Ray 05/16/17 01:18 IMPRESSION: Possible mildly impacted right femoral neck fracture/deformity. Consider obtaining dedicated radiographs of the right hip and/or CT/MR correlation Lower Extremity CT 05/16/17 02:52 IMPRESSION: Subcapital fracture of the right proximal femur. Chest X-Ray 05/16/17 04:38 IMPRESSION: No acute cardiopulmonary findings. Hip X-Ray 05/17/17 00:00 IMPRESSION: IMAGE(S) OBTAINED DURING PROCEDURE. Status: Image reviewed by me Assessment & Plan - Plan Summary Plan Summary: Patient is 71-year-old female POD #1 from percutaneous pinning right valgus impacted femoral neck fracture. Continue physical therapy Continue pain control DVT prophylaxis Awaiting detention facility placement
[2017-05-18] MEDS: INSULIN DETEMIR 100 UNIT/ML 3 ML PEN SUBCUT SCH ×2 (16:03→18:51)
[2017-05-18] MEDS: PIOGLITAZONE HCL 15 MG TABLET PO SCH (16:03)
[2017-05-18] MEDS: ACETAMINOPHEN 325 MG TABLET PO PRN (17:45)
--- NOTE | 2017-05-18 20:33 | PDOC DISCHARGE SUMMARY ---
General - Admit/Disc Date/PCP Admission Date/Primary Care Provider: 05/16/17 10:39 CHEIKH MART MD Discharge Date: 05/19/17 - Discharge Diagnosis (1) Nondisplaced fracture of neck of right femur Is this a current diagnosis for this admission?: Yes (2) Uncontrolled diabetes mellitus Is this a current diagnosis for this admission?: Yes (3) Acute kidney injury Is this a current diagnosis for this admission?: Yes (4) Hyponatremia Is this a current diagnosis for this admission?: Yes (6) Urinary tract infection due to Enterococcus Is this a current diagnosis for this admission?: Yes - Additional Information Resuscitation Status: Full Code Home Medications: Acetaminophen [Tylenol Extra Strength 500 mg Tablet] 1,000 mg PO Q6HP PRN Aspirin [Ecotrin 81 mg EC Tablet] 81 mg PO BID 05/16/17 Atorvastatin Calcium [Lipitor 80 mg Tablet] 80 mg PO QHS 05/16/17 Gabapentin [Neurontin 300 mg Capsule] 300 mg PO Q8 05/16/17 Insulin Aspart [Novolog Flexpen] 0 unit SUBCUT .SLD SCALE 05/16/17 Insulin Detemir [Levemir Flextouch] 45 unit SQ QAM 05/16/17 Levothyroxine Sodium [Synthroid] 50 mcg PO DAILY 05/16/17 Lisinopril [Prinivil] 20 mg PO DAILY 05/16/17 Losartan Potassium [Cozaar 100 mg Tablet] 100 mg PO DAILY 05/16/17 Pioglitazone HCl [Actos] 45 mg PO DAILY 05/16/17 Sennosides/Docusate Sodium [Senna-S Tablet] 1 each PO BID 05/16/17 Tolterodine Tartrate [Detrol LA] 4 mg PO DAILY 05/16/17 Ciprofloxacin HCl [Cipro 500 mg Tablet] 250 mg PO Q12 #14 tablet 05/18/17 Rivaroxaban [Xarelto 10 mg Tablet] 10 mg PO QHS #14 tablet 05/18/17 Tramadol HCl [Ultram 50 mg Tablet] 50 mg PO Q6HP PRN #60 tablet 05/18/17 History of Present Illness History of Present Illness: She fell and sustained fracture of the right proximal femur, she is presently in the jail at [place] because she is undergoing rehabilitation after she fell over a week ago and sustained fracture of the left hip area. At that time she was transferred to [place] where she underwent ORIF and she was transferred back to the jail at [place] for rehabilitation. She has underlining history of dementia and recently she has become more confused she also have diabetes mellitus that is poorly controlled she has not been compliant with her medication in the last couple of weeks. Patient's family was making plans to transfer her to [facility] where the daughter stays.There was no antecedent history of chest pain, no loss of consciousness Hospital Course Hospital Course: Patient was admitted for the management of fracture of the neck of the right femur, she was seen by orthopedic and she underwent ORIF. She also had diabetes mellitus with acute kidney injury and electrolyte derangement, this was corrected before surgery. Patient came from jail where she was undergoing rehabilitation due to fracture of the left hip that she sustained couple of weeks ago. The family wants patient to relocate to the [place], [place] because of underlying dementia and the fact that she is not able to take care of herself any longer, the family has opted to have her move from the hospital to [place], [place] at this time, she would not be returning to the jail at [place].She also had E. coli UTI, the organism is pansensitive to all antibiotic, she is on Cipro Physical Exam Vital Signs: Temp Pulse Resp BP Pulse Ox 98.6 F 80 15 154/53 H 98 05/18/17 19:34 05/18/17 19:34 05/18/17 19:34 05/18/17 19:34 05/18/17 19:34 Intake & Output 05/17/17 05/18/17 05/19/17 06:59 06:59 06:59 Intake Total 1532 2897 480 Output Total 1860 800 Balance 1532 1037 -320 Weight 59.3 kg General appearance: PRESENT: no acute distress Eye exam: PRESENT: PERRLA Respiratory exam: PRESENT: clear to auscultation casandra Cardiovascular exam: PRESENT: +S1, +S2 GI/Abdominal exam: PRESENT: soft Neurological exam: PRESENT: alert, CN II-XII grossly intact Results Laboratory Results: 05/18/17 04:37 05/18/17 04:37 05/18/17 05/18/17 04:37 04:37 WBC 9.0 RBC 3.04 L Hgb 9.4 L Hct 27.4 L MCV 90 MCH 30.9 MCHC 34.2 RDW 14.4 H Plt Count 337 Sodium 137.2 Potassium 5.0 Chloride 106 Carbon Dioxide 24 Anion Gap 7 BUN 22 H Creatinine 1.33 H Est GFR ( Amer) 47 L Est GFR (Non-Af Amer) 39 L Glucose 131 H Calcium 8.1 L 05/16/17 18:30 Catheterized Urine Urine Culture - Final Escherichia Coli Impressions: Femur X-Ray 05/16/17 01:18 IMPRESSION: Possible mildly impacted right femoral neck fracture/deformity. Consider obtaining dedicated radiographs of the right hip and/or CT/MR correlation Lower Extremity CT 05/16/17 02:52 IMPRESSION: Subcapital fracture of the right proximal femur. Chest X-Ray 05/16/17 04:38 IMPRESSION: No acute cardiopulmonary findings. Hip X-Ray 05/17/17 00:00 IMPRESSION: IMAGE(S) OBTAINED DURING PROCEDURE.
[2017-05-18] MEDS: QUININE SULFATE 324 MG CAPSULE PO SCH (21:58)
[2017-05-18] MEDS: RIVAROXABAN 10 MG TABLET PO SCH (21:59)
[2017-05-18] MEDS: CIPROFLOXACIN HCL 500 MG TABLET PO SCH (22:01)
[2017-05-18] MEDS: ATORVASTATIN CALCIUM 80 MG TABLET PO SCH (22:02)
[2017-05-19] MEDS: GABAPENTIN 300 MG CAPSULE PO SCH ×3 (05:25→21:46)
[2017-05-19] MEDS: LEVOTHYROXINE SODIUM 0.05 MG TABLET PO SCH (05:25)
[2017-05-19] MEDS: SENNOSIDES/DOCUSATE 8.6-50 MG 1 EACH TABLET PO SCH ×2 (09:59→17:19)
[2017-05-19] MEDS: LOSARTAN POTASSIUM 50 MG TABLET PO SCH (09:59)
[2017-05-19] MEDS: METOCLOPRAMIDE HCL 10 MG TABLET PO SCH ×4 (10:00→21:46)
[2017-05-19] MEDS: TOLTERODINE TARTRATE 1 MG TABLET PO SCH ×2 (10:01→21:45)
[2017-05-19] MEDS: PIOGLITAZONE HCL 15 MG TABLET PO SCH (10:01)
[2017-05-19] MEDS: CIPROFLOXACIN HCL 500 MG TABLET PO SCH ×2 (10:02→21:45)
[2017-05-19] MEDS: HYDROCHLOROTHIAZIDE 25 MG TABLET PO SCH (10:08)
[2017-05-19] MEDS: INSULIN DETEMIR 100 UNIT/ML 3 ML PEN SUBCUT SCH ×2 (10:08→17:28)
[2017-05-19] MEDS: INSULIN LISPRO 100 UNIT/ML 3 ML VIAL SUBCUT PRN (17:20)
[2017-05-19] MEDS: ACETAMINOPHEN 325 MG TABLET PO PRN (21:44)
[2017-05-19] MEDS: ATORVASTATIN CALCIUM 80 MG TABLET PO SCH (21:45)
[2017-05-19] MEDS: RIVAROXABAN 10 MG TABLET PO SCH (21:46)
[2017-05-19] MEDS: QUININE SULFATE 324 MG CAPSULE PO SCH (21:46)
[2017-05-20 00:05] VITALS: BP 150/73
[2017-05-20] MEDS: GABAPENTIN 300 MG CAPSULE PO SCH (05:38)
[2017-05-20] MEDS: LEVOTHYROXINE SODIUM 0.05 MG TABLET PO SCH (05:38)
== END 2017-05-20 06:33 | disposition other institution (70) | DRG 481 ==
LOC: ER 00:49 → UNDOADMIN 06:37 → EH 06:37 → 4S 09:07 → EH 09:07 → 4S 10:39
PROVIDERS: ADMIT Internal Medicine; ATTEND Internal Medicine
PROC: 0QH634Z Insertion of Internal Fixation Device into Right Upper Femur, Percutaneous Approach (ICD-10-PCS; principal; 2017-05-17 10:30)
DX: S72.001A Fracture of unspecified part of neck of right femur, initial encounter for closed fracture (principal); E87.1 Hypo-osmolality and hyponatremia; N39.0 Urinary tract infection, site not specified; N17.9 Acute kidney failure, unspecified; W18.30XA Fall on same level, unspecified, initial encounter; E11.65 Type 2 diabetes mellitus with hyperglycemia; E11.22 Type 2 diabetes mellitus with diabetic chronic kidney disease; I12.9 Hypertensive chronic kidney disease with stage 1 through stage 4 chronic kidney disease, or unspecified chronic kidney disease; N18.9 Chronic kidney disease, unspecified; B96.20 Unspecified Escherichia coli [E. coli] as the cause of diseases classified elsewhere; J44.9 Chronic obstructive pulmonary disease, unspecified; M19.90 Unspecified osteoarthritis, unspecified site; F03.90 Unspecified dementia, unspecified severity, without behavioral disturbance, psychotic disturbance, mood disturbance, and anxiety; Z79.82 Long term (current) use of aspirin; Z79.4 Long term (current) use of insulin; Z79.899 Other long term (current) drug therapy; Z90.710 Acquired absence of both cervix and uterus; Z90.10 Acquired absence of unspecified breast and nipple; Z88.2 Allergy status to sulfonamides
CPT/HCPCS: 01210; 36415; 71010; 80048; 80053; 81001; 82962; 83036; 85025; 85027; 85610; 85730; 87086; 87088; 87186; 93005; 93010; 99285; G8978-GP; G8979-GP; J0131; J0690; J1815; J2250; J2405; J2704; J3010; J3490; J7120